=== PATIENT | male | born 1990 | race Caucasian/White ===

== ENCOUNTER → 2016-11-24 | Outpatient (CLI) | payer OTHER | LOC: FIMAGING 15:44 | PROVIDERS: ATTEND Internal Medicine | DX: N50.89 Other specified disorders of the male genital organs (principal) ==

== ENCOUNTER → 2016-12-04 | Day surgery (SDC) | payer OTHER ==
--- NOTE | 2016-12-03 18:02 | GHP ---
[f rep st] PREOP HISTORY AND PHYSICAL ADMISSION DIAGNOSIS: Right testicular mass. HISTORY OF PRESENT ILLNESS: This is a 26-year-old gentleman who has had a right testicular mass noted on exam ultrasound, and it measures 1.9 x 1.4 x 1.7 , and is solid. He has had tumor markers that are normal. At the present time he is admitted for an inguinal radical orchiectomy for a testicular mass. PAST MEDICAL HISTORY: None. PAST SURGICAL HISTORY: Ankle surgery. MEDICATIONS: Multivitamins and fish oil. ALLERGIES: No known drug allergies. FAMILY HISTORY: Positive for prostate cancer. SOCIAL HISTORY: Moderate alcohol consumption, nonsmoker. REVIEW OF SYSTEMS: Negative cardiac, respiratory, GI, endocrine, and psychiatric. PHYSICAL EXAM: VITAL SIGNS: Stable. CHEST: Clear. HEART: Regular rate and rhythm. ABDOMEN: Normal, no organomegaly, rebound or guarding. No gynecomastia. EXTERNAL GENITALIA: Penis, normal. Testes, normal left, right is atrophic with a solid lesion in the lower pole of the testicle. LOWER EXTREMITIES: Normal. At the present time he is admitted for a right radical inguinal orchiectomy. Indications and complications are discussed, and if biopsy is proved to be malignant he will undergo postoperative radiologic imaging for the diagnosis of testicular cancer. /[id number]/MODL MTDD
[~2016-12-04] MED LIST: BUPIVACAINE 0.5% 30 ML SDV ONE; IOPAMIDOL (ISOVUE-300) 100 ML BTL IV ONE; ISOSULFAN BLUE SC ONE; LIDOCAINE 1% 5 ML SDV ID PRN; LR 1,000 ML IV ONE; MIDAZOLAM 2 MG/2 ML VIAL ONE; OXYCODONE/APAP 5/325 TAB ONE; PROPOFOL 200 MG/20 ML VIAL ONE; PROPOFOL/EMULSION 500 MG/50 ML BOTTLE IV ONE; SKIN ADHESIVE (DERMABOND) 1 EACH TP ONE; ceFAZolin 2 GM/DEXTROSE 100 ML IV ONE; fentaNYL 100 MCG/2 ML INJ ONE
--- NOTE | 2016-12-04 19:26 | GOP ---
[f rep st] OPERATIVE REPORT DATE OF OPERATION: 12/04/2016 SURGEON: Behzad Araiza MD ANESTHESIA: General. ANESTHESIOLOGIST: Jr Freedman M.D. PREOPERATIVE DIAGNOSIS: Right testicular mass. POSTOPERATIVE DIAGNOSIS: Right testicular mass. PROCEDURE PERFORMED: Right radical inguinal orchiectomy. FINDINGS: SPECIMENS: Sent to pathology. 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 Will plan on having him have a CT scan of the abdomen and pelvis to comple te his evaluation. His tumor markers preop were normal. ESTIMATED BLOOD LOSS: Less than 10 cc. DESCRIPTION OF PROCEDURE: This gentleman had undergone general anesthesia and was prepped and drape d in normal sterile fashion. After appropriate timeout and being marked appropriately, a right ingu inal incision was made, going down through skin, Camper and Ephraim's fascial layers. External obliq ue fibers were incised, and the testicle was brought up out of the right hemiscrotum after an occlus ion Marzena drain was placed at the inguinal ring on the spermatic cord. Hemostasis was provided wi th cauterization and ties for the gubernacular attachments. Then, at that point, the vas deferens w as from the spermatic cord and ligated with a 3-0 Vicryl. Then an 0 Vicryl was used to do uble ligate the remaining spermatic vessels and cord, with a suture ligature-type tie. Hemostasis w as noted. Marcaine was used for a field block. The external oblique fibers were approximated with interrupted 3-0 Vicryl, 3-0 Vicryl approximated the subcutaneous tissue. Skin was approximated with 4-0 Monocryl, and Dermabond placed. He tolerated the procedure well. /[id number]/MODL
== END | disposition home or self-care (01) ==
LOC: FSGY 14:30 → EEVIPCON 15:45
PROVIDERS: ATTEND Specialist
DX: D40.11 Neoplasm of uncertain behavior of right testis (principal); Z80.42 Family history of malignant neoplasm of prostate; Z66 Do not resuscitate
CPT/HCPCS: J0690; J2250; J2704; J3010; Q9967